=== PATIENT | female | born 1975 | race African-American/Black ===

== ENCOUNTER 2020-04-09 20:49 | Emergency (ER) | payer OTHER, MEDICAID, SELFPAY ==
--- NOTE | ~2020-04-09 | XR_ITS ---
EXAMINATION: XR ankle LT 2V EXAM DATE: 04/09/2020 21:12 INDICATION: Initial encounter following injury, with pain of the left ankle. [place] pop. TECHNIQUE: Frontal and lateral projections of the left ankle. There is no prior study for compariso n. FINDINGS: There are no acute left ankle fractures or dislocations identified. There is no subcutaneo us gas. The soft tissue is unremarkable. There are no radiopaque foreign bodies. IMPRESSION: 1. Left ankle exam without acute osseous findings. Reviewed, dictated and finalized at location G.
--- NOTE | ~2020-04-09 | XR_ITS ---
XR tibia fibula LT 2V DATE: 04/09/2020 21:41 INDICATION: Fall. Patient felt a pop in ankle. TECHNIQUE: AP and lateral views COMPARISON: 04/09/2020 left ankle FINDINGS: Mild lateral ankle soft tissue swelling. No tibial or fibular fracture is evident. Normal a lignment at the knee and ankle joints. IMPRESSION: Mild lateral ankle soft tissue swelling. Reviewed, dictated and finalized at location A.
[2020-04-09 20:51] VITALS: BP 156/88; PULSE 80; RESP 18; TEMP 37.3; O2SAT 100
--- NOTE | 2020-04-09 21:24 | ED.GENADULT ---
HPI - General Adult General Chief complaint: Extremity Injury, Lower Stated complaint: L ankle pain Source: patient Mode of arrival: ambulatory Limitations: no limitations History of Present Illness HPI narrative: Patient is a 45-year-old female who presents for evaluation of left ankle pain. Pain began after she missed a step going down her deck, rolling her left ankle. Patient reports immediate sharp, throbbing left ankle pain on the outside of her ankle radiated to the upper leg. No knee pain. No head trauma or loss of consciousness. Patient reports swelling, minimal bruising, no numbness in her left foot. Patient has been limping, but has been able to ambulate. Related Data Home Medications Medication Instructions Recorded Confirmed Valtrex 500 mg PO DAILY PRN 10/16/19 10/20/19 calcium carbonate [Calcium 600] 600 mg PO DAILY 10/16/19 10/20/19 cetirizine [Zyrtec] 10 mg PO DAILY 10/16/19 10/20/19 hydrochlorothiazide 12.5 mg PO DAILY 10/16/19 10/20/19 ibuprofen 800 mg PO BID PRN 10/16/19 10/20/19 losartan 25 mg PO DAILY 10/16/19 10/20/19 multivitamin 1 tablet PO DAILY 10/16/19 10/20/19 potassium chloride [K-Tab] 10 meq PO DAILY 10/16/19 10/20/19 Allergies Allergy/AdvReac Type Severity Reaction Status Date / Time nitrofurantoin AdvReac Headache Verified 10/20/19 09:44 [From Macrobid] tramadol AdvReac Vomiting Verified 10/20/19 09:44 Review of Systems Review of Systems: Narrative: CONSTITUTIONAL: Denies fever ENT: Denies rhinorrhea, congestion, sore throat, or otalgia. CARDIOVASCULAR: Denies chest pain RESPIRATORY: Denies cough or dyspnea. GASTROINTESTINAL: Denies nausea or vomiting SKIN: Denies laceration MUSCULOSKELETAL: Reports left ankle pain NEUROLOGIC: Denies denies numbness PMFSH Past Medical History Medical History Depression Hypertension Migraine Surgical History Surgical History History of hysterectomy Social History Social History (Updated 04/09/20 @ 21:26 by Sheryl Zepeda MD) Smoking status: Never smoker Alcohol intake: never Substance use: never Gender identity (if verbalized by the patient): Female Exam Narrative: Exam Narrative: GENERAL: Awake, alert, conversant HEAD: Normocephalic, atraumatic. EYES: PERRLA and EOMI. ENT: Nares clear, no rhinorrhea or epistaxis. Mucous membranes moist. NECK: Supple. CHEST: No respiratory distress, breathing even and non labored HEART: Regular rate, sinus rhythm ABDOMEN:Non distended, non tender EXTREMITIES: Decreased range of motion the left ankle. Lateral malleolus edema present in the left ankle with tenderness. No deformity. DP pulses 2+. Intact sensation distally. SKIN: Warm, dry, no rash. NEURO:No focal deficits. Alert and oriented x3 Course Vital Signs Vital signs: Vital Signs Temperature 37.3 C 04/09/20 20:51 Pulse Rate 80 04/09/20 20:51 Respiratory Rate 18 04/09/20 20:51 Blood Pressure 156/88 H 04/09/20 20:51 Pulse Oximetry 100 04/09/20 20:51 Temperature 37.3 C 04/09/20 20:51 Pulse Rate 80 04/09/20 20:51 Respiratory Rate 18 04/09/20 20:51 Blood Pressure 156/88 H 04/09/20 20:51 Pulse Oximetry 100 04/09/20 20:51 Medical Decision Making MDM Narrative Medical decision making narrative: Patient presented for evaluation of misstep off of her deck. Patient has mild lateral ankle and foot edema, no osseous abnormalities found on imaging. Most consistent with ankle sprain. Patient vies to rest, ice, elevate the extremity, advised not to do any strenuous activity. Patient was then discharged home with anti-inflammatories, [place] wrap. Vital Signs Vital Signs: Vital Signs Temperature 37.3 C 04/09/20 20:51 Pulse Rate 80 04/09/20 20:51 Respiratory Rate 18 04/09/20 20:51 Blood Pressure 156/88 H 04/09/20 20:51 Pulse Oximetry 100 04/09/20 20:51 Temperatur
[2020-04-09] MEDS: IBUPROFEN 600 MG TABLET PO (21:46)
[2020-04-09] MEDS: ACETAMINOPHEN 500 MG TABLET 1000 MG PO (21:46)
[2020-04-09 22:54] VITALS: BP 140/87; PULSE 85; RESP 19; TEMP 36.7; O2SAT 100
== END 2020-04-09 22:56 | disposition home or self-care (01) ==
PROVIDERS: Emergency Provider Emergency Medicine
DX: S93.402A Sprain of unspecified ligament of left ankle, initial encounter (principal); S96.912A Strain of unspecified muscle and tendon at ankle and foot level, left foot, initial encounter; I10 Essential (primary) hypertension; X50.9XXA Other and unspecified overexertion or strenuous movements or postures, initial encounter
CPT/HCPCS: 73590; 73600; 99284; A9270